=== PATIENT | female | born 1960 | race Caucasian/White ===

== ENCOUNTER 2017-03-23 10:36 | Emergency (ER) | payer OTHER, MEDICARE ==
[2017-03-23 11:20] LABS: Hematocrit 37.9 % (37.0-47.0); Hemoglobin 13.2 gm/dL (12.5-16.0); Mean Cell Volume 82.2 fl (78-100); Mean Corpuscular Hemoglobin 28.6 pg (27-31); Mean Corpuscular Hgb Conc 34.8 g/dl (32-36); Mean Platelet Volume 11.4 fl (6.0-9.5); Neutrophil # 9.9 K/mm3 (1.3-6.0); Neutrophil % 93.5 % (42-75.0); Platelet Count 237 K/mm3 (150-450); Red Blood Count 4.61 M/mm3 (4.2-5.4); Red Cell Distribution Width 14.9 % (11.5-14.0); White Blood Count 10.6 K/mm3 (4.0-10.5)
[2017-03-23 11:39] LABS: ALT 326 U/L (19-67); AST 306 U/L (0-48); Albumin * 2.7 gm/dl (3.4-5.0); Alkaline Phosphatase * 494 U/L (50-170); Anion Gap 18.1 mmol/L (6.8-13.8); Bilirubin, Total 9.3 mg/dL (0.0-1.1); Blood Urea Nitrogen 57 mg/dL (3-23); Ca. Corrected For Albumin 11.5 mg/dL (8.4-10.2); Calcium * 10.8 mg/dL (7.9-10.9); Carbon Dioxide 20.5 mmol/L (24-32.6); Chloride 93 mmol/L (97-106); Glucose * 191 mg/dL (70-110); Potassium 4.6 mmol/L (3.4-4.6); Sodium 127 mmol/L (132-142); Total Protein 9.1 gm/dL (6.2-8.2); Troponin I Less than 0.017 ng/ml (0.00-0.10)
[2017-03-23] MEDS ORDERED: NORMAL SALINE 1,000 ML IV ONE (11:55)
[2017-03-23 12:01] LABS: Lipase 1725 U/L (73-393)
[2017-03-23 12:22] LABS: Urine Bilirubin 3 mg/dl (NEGATIVE); Urine Blood 50 /ul (NEGATIVE); Urine Ketone Negative (NEGATIVE); Urine Nitrite Negative (NEGATIVE); Urine Protein 15 mg/dL (NEGATIVE); Urine Urobilinogen Normal (NORMAL); Urine pH 5.5 pH (5.0-7.0)
--- NOTE | 2017-03-23 12:27 | ERNOTE ---
Abdominal HPI - Narrative Date of Service: 03/23/17 - General Chief Complaint: Abdominal Pain Time Seen by Provider: 03/23/17 11:00 Source: patient Exam Limitations: no limitations - Immun/Allergies/Home Medications Immunizatons: IMMUNIZATION HX Immunizations Up to Date Yes History of Influenza Vaccine Yes Hx Pneumococcal Vaccination No Allergies/Adverse Reactions: Allergies No Known Allergies Allergy (Verified 06/11/15 22:35) Home Medications: HOME MEDICATIONS Aspirin [Aspirin Chewable] 81 mg PO DAILY 04/20/14 [Last Taken 04/20/14] Warfarin Sodium [Coumadin] 2.5 mg PO DAILY 04/25/14 [Last Taken Unknown] Sodium Bicarbonate 650 mg PO TID 07/12/14 [Last Taken Unknown] Cholecalciferol (Vitamin D3) [Vitamin D-3] 2,000 unit PO BID 10/10/14 [Last Taken Unknown] ALPRAZolam [Xanax] 0.5 mg PO TID PRN 06/11/15 [Last Taken Unknown] Loperamide HCl [Imodium] 2 mg PO QID PRN 06/11/15 [Last Taken Unknown] Omeprazole [Prilosec] 20 mg PO DAILY 06/17/15 [Last Taken Unknown] Hydrochlorothiazide 12.5 mg PO DAILY 07/22/15 [Last Taken Unknown] Minoxidil 5 mg PO TID 07/22/15 [Last Taken Unknown] Ferrous Sulfate [Ferrous Sulfate Elixir] 2 ml PO DAILY 09/07/15 [Last Taken Unknown] Levothyroxine Sodium [Synthroid] 50 mcg PO DAILY 11/09/15 [Last Taken Unknown] Furosemide [Lasix] 20 mg PO BID 02/27/16 [Last Taken Unknown] Potassium Chloride [K-Dur] 40 meq PO DAILY 02/27/16 [Last Taken Unknown] Calcium Carbonate [Calcium] 500 mg PO QID 09/05/16 [Last Taken Unknown] Calcitriol 0.5 mcg PO DAILY 02/23/17 [Last Taken Unknown] Colchicine 0.6 mg PO DAILY 02/23/17 [Last Taken Unknown] Febuxostat [Uloric] 40 mg PO DAILY 02/23/17 [Last Taken Unknown] - History of Present Illness Narrative: Patient presents to the ED with four weeks of gradually worsening generalized weakness, turning yellow, dark urine and foamy output from her ileostomy. She denies pain, no vomiting, no CP but some SOB with exertion. Has not seen anyone else for this. No ETOH. Nothign seems to make this better or worse. Has never had anything like this before. Timing: constant, getting worse Quality: moderate Activities at Onset: none Modifying Factors - (Improves): Present: other - nothing Modifying Factors - (Worsens): Present: other - nothing Associated Symptoms: Present: shortness of breath. Absent: chest pain, fever/ chills Prior Abdominal Problems: Absent: similar symptoms Prior Treatment: Absent: recently seen Review of Systems - Review of Systems Constitutional: Absent: fever Respiratory: Present: shortness of breath Cardiology: Absent: chest pain Gastrointestinal/Abdominal: Absent: vomiting, abdominal pain Musculoskeletal: Absent: joint swelling Skin: Present: change in color Neurological: Absent: tingling All Other Systems: All systems neg except as marked - Patient's Past Medical History Patient History - Medical: Renal Disease, Renal Failure Patient History - Cardiac/Respiratory: Coronary Heart Disease, CVA/Stroke, Deep Vein Thrombosis, Myocardial Infarction Patient History - Cancer: No Hx of Cancer Patient History - Surgical Procedures: Cholecystectomy, , Other Patient History - Other: None LMP (females 10-50): Menopausal - Social History Living Situations: home Abuse History: No History of abuse Psych History: No pertinent hx Smoking Status: Current every day smoker Have you smoked in the past 12 months: Yes Do you dip or chew tobacco: No Alcohol Use: sober Drug Use: none - Immunizations Immunizations Up to Date: Yes Hx Pneumococcal Vaccination: No History of Influenza Vaccine: Yes Physical Exam - Physical Exam General Appearance: Present: alert, no apparent distress Head Exam: Present: normal inspection, no evidence of injury Eye Exam: Normal inspection: bilateral, PERRL: bilateral Ears, Nose, Throat: Present: normal ENT inspection Neck: Present: normal inspection Respiratory: Present: no respiratory distress, normal breath sounds, no accessory muscle use, lungs clear Cardiovascular/Chest: Present: regular rate, rhythm, normal peripheral pulses Gastrointestinal/Abdominal: Present: normal bowel sounds, nontender, soft Back Exam: Absent: CVA tenderness (R), CVA tenderness (L) Extremity Exam: Present: non-tender Neurological Exam: Present: alert, normal mood/affect, 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 Absent: motor weakness Skin Exam: Present: warm/dry, jaundice ED Progress - Results and Orders Patient's Lab Results:: I have reviewed the patient's lab results. - Vital Signs Patient's Vital Signs:: I have reviewed the patient's vital signs. Vital Signs: Vital Signs 03/23/17 10:50 Temperature 36.7 C Pulse Rate 80 Respiratory 17 Rate Blood Pressure 110/72 O2 Sat by Pulse 99 Oximetry - EKG EKG: NSR EKG read: Interp. by me EKG Comments: NSR PVC, rate 74. Non-specific ST/T wave changes, no STEMI - X-Ray X-Ray #1 X-Ray: chest Interpretation: Interp. by me X-ray Comments: I reviewed official radiology report X-Ray #2 X-Ray: abdomen Interpretation: Interp. by me X-ray Comments: I reviewed official radiology report - Progress/Reassessment Chief Complaint: Abdominal Pain Progress Note-Subjective: 03/23/17 12:55 Patient requires multisystem specialty eval, needs transfer. Pt agreeable. D/ W [facility], patient accepted in transfer. Departure Clinical Impression: Pancreatitis, Hyperbilirubinemia, Elevated INR, Elevated liver enzymes - Departure Disposition: [facility] Condition: Fair Referrals: Alfa Steele MD [Primary Care Provider] -
[2017-03-23 12:34] LABS: Urine Appearance Slightly Cloudy; Urine Bacteria 3+; Urine Color Orange
[2017-03-23] MEDS ORDERED: PHYTONADIONE (VIT K1) 10 MG/ML AMPUL SC ONE (12:34)
[2017-03-23] MEDS ORDERED: PHYTONADIONE (VIT K1) 10 MG/ML AMPUL ONE (12:40)
[2017-03-23 13:45] VITALS: BP 119/63
== END 2017-03-23 13:43 | disposition short-term general hospital (02) ==
LOC: ER 10:36
PROC: 30243L1 Transfusion of Nonautologous Fresh Plasma into Central Vein, Percutaneous Approach (ICD-10-PCS; principal; 2017-03-23)
PROC: 30243K1 Transfusion of Nonautologous Frozen Plasma into Central Vein, Percutaneous Approach (ICD-10-PCS; 2017-03-23)
DX: I25.2 Old myocardial infarction; I50.9 Heart failure, unspecified; Z79.01 Long term (current) use of anticoagulants; K85.90 Acute pancreatitis without necrosis or infection, unspecified; R74.8 Abnormal levels of other serum enzymes; Z86.718 Personal history of other venous thrombosis and embolism; R79.1 Abnormal coagulation profile; F17.200 Nicotine dependence, unspecified, uncomplicated; E80.6 Other disorders of bilirubin metabolism
CPT/HCPCS: 36415; 36430; 71046; 74019; 80053; 81001; 82140; 83605; 83690; 84484; 85025; 87077; 87086; 87186; 93005; 96372; 99285; P9060